=== PATIENT | female | born 1965 | race Caucasian/White ===

== ENCOUNTER 2018-11-05 16:10 | Emergency (ER) | payer MEDICAID ==
[2018-11-05] MEDS ORDERED: Sodium Chloride 0.9% 1,000 ML IV ONE (16:31)
--- NOTE | 2018-11-05 16:47 | ED Physician Chart ---
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 Pain, A/n/V/ D/C, fever, chills, or urinary s/s; pt's last tetanus shot: < 5 years; UTD; pt denies drug abuse Allergies:: Allergies Allergy/AdvReac Type Severity Reaction Status Date / Time No Known Allergies Allergy Verified 11/05/18 16:21 Vitals:: Vital Signs - 8 hr 11/05/18 16:21 Temp 98.8 F HR 108 RR 16 BP 115/77 O2 Sat % 97 Historian:: Patient, EMS Review:: Nurse's Note Reviewed, Old Chart Reviewed, EMS run form Reviewed ED Review of Systems - Review of Systems General/Constitutional: No fever, No chills, No weight loss, No weakness, No diaphoresis, No edema, No loss of appetite Skin: No skin lesions, No rash, No bruising Head: No headache, No light-headedness Eyes: No loss of vision, No pain, No diplopia ENT: No earache, No nasal drainage, No sore throat, No tinnitus Neck: No neck pain, No swelling, No thyromegaly, No stiffness, No mass noted Cardio Vascular: No chest pain, No palpitations, No PND, No orthopnea, No edema Pulmonary: No SOB, No cough, No sputum, No wheezing GI: No nausea, No vomiting, No diarrhea, No pain, No melena, No hematochezia, No constipation, No hematemesis G/U: No dysuria, No frequency, No hematuria, No nacturia Wool Handler: No vaginal discharge, No abnormal vaginal bleed, No contraction Musculoskeletal: No bone or joint pain, No back pain, No muscle pain Endocrine: No polyuria, No polydipsia Psychiatric: No prior psych history, No depression, No anxiety, No suicidal ideation, No homicidal ideation, No auditory hallucination, No visual hallucination Hematopoietic: No bruising, No lymphadenopathy Allergic/Immuno: No urticaria, No angioedema Neurological: No syncope, No focal symptoms, No weakness, No paresthesia, No headache, No seizure, No dizziness, No confusion, No vertigo ED Past Medical History - Past Medical History Obtainable: Yes Past Medical History: No significant medical hx Family History: None Social History: Non Smoker, Alcohol, No Drug Use, Surgical History: other (Breast Implant) Psychiatricy History: None Medication: Reviewed Family Medical History - Family Member Father Living Status: Still Living Hx Family Diabetes: Yes ED Physical Exam - Physical Examination General/Constitutional: Awake, Well-developed, well-nourished, Alert, No distress, GCS 15, Non-toxic appearing, Ambulatory Head: Atraumatic Eyes: Lids, conjuctiva normal, PERRL, EOMI Skin: Nl inspection, No rash, No skin lesions, No ecchymosis, Well hydrated, No lymphadenopathy ENMT: External ears, nose nl, TM canals nl, Nasal exam nl, Lips, teeth, gums nl , Oropharynx nl, Tonsils nl Neck: Nontender, Full ROM w/o pain, No JVD, No nuchal rigidity, No bruit, No mass, No stridor Respiratory: Nl effort/Exclusion, Clear to Auscultation, No Wheeze/Rhonchi/Rales Cardio Vascular: RRR, No murmur, gallop, rubs, NL S1 S2, Carotid/Femoral/Distal pulses equal bilaterally GI: No tenderness/rebounding/guarding, No organomegaly, No hernia, Normal BS's, Nondistended, No mass/bruits, No McBurney tenderness : No CVA tenderness Extremities: No tenderness or effusion, Full ROM, normal strength in all extremities, No edema, Normal digits & nails Neuro/Psych: Alert/oriented, DTR's symmetric, Normal sensory exam, Normal motor strength, Judgement/insight normal, Mood normal, Normal gait, No focal deficits Misc: Normal back, No paraspinal tenderness ED Labs/Radiology/EKG Results - Lab Results Comments:: Reviewed - EKG Interpretations EKG Time:: 16:43 Rate & Rhythm: 118; ST Comments:: LAE; non-specific st-t changes ED Septic Shock - . Is Septic Shock (SBP<90, OR Lactate>4 mmol\L) present?: No - <6hrs of presentation: Vital Signs: Vital Signs - 8 hr 11/05/18 16:21 Temp 98.8 F HR 108 RR 16 BP 115/77 O2 Sat % 97 ED Reassessment (Disposition) - Reassessment Reassessment Condition:: Improved - Diagnosis Diagnosis:: Altered Mental Status; Altered Level of Consciousness; Elevated D-Dimer; Hypokalemia; Elevated LFTs; Hypocalcemia; HLD; Hematuria; UTI; Alcohol Abuse; Alcohol Intoxication; Tachycardia; Dehydration
[2018-11-05 16:58] LABS: % BASOPHILS 2.7 % (0.0-2.0); % EOSINOPHILS 0.7 % (0.0-5.0); % LYMPHOCYTES 17.4 % (20.0-50.0); % NEUTROPHILS 76.2 % (40.0-80.0); BASOPHILE ABSOLUTE 0.2 Th/cumm (0-0.2); EOSINOPHILE ABSOLUTE 0.1 Th/cmm (0.1-0.4); HEMATOCRIT 37.5 % (41.0-60); HEMOGLOBIN 12.2 gm/dL (12-16); LYMPHOCYTE ABSOLUTE 1.3 Th/cmm (1.5-3.0); MEAN CELL VOLUME 92.4 fl (81-100); MEAN CORPUSCULAR HEMOGLOBIN 30.2 pg (27.0-31.0); MEAN CORPUSCULAR HGB CONC 32.7 pg (28.0-36.0); MONOCYTE ABSOLUTE 0.2 Th/cmm (0.3-1.0); NEUTROPHILE ABSOLUTE 5.9 Th/cmm (1.8-8.0); PLATELET COUNT 231 Th/cmm (150-400); RED BLOOD COUNT 4.05 Mil/cmm (3.80-5.10); RED CELL DISTRIBUTION WIDTH 16.9 % (11.5-20.0); WHITE BLOOD COUNT 7.7 Th/cmm (4.8-10.8)
[2018-11-05 17:04] LABS: URINE SOURCE RANDOM
[2018-11-05 17:07] LABS: URINE BILIRUBIN NEGATIVE (NEGATIVE); URINE BLOOD SMALL (NEGATIVE); URINE GLUCOSE (UA) NEGATIVE (NEGATIVE); URINE KETONE NEGATIVE (NEGATIVE); URINE LEUKOCYTE ESTERASE NEGATIVE (NEGATIVE); URINE MICROSCOPIC INDICATED? YES; URINE NITRATE NEGATIVE (NEGATIVE); URINE PROTEIN TRACE mg/dL (NEGATIVE); URINE UROBILINOGEN 0.2 E.U./dL (0.2 - 1.0)
[2018-11-05 17:10] LABS: INR 1.01 (0.5-1.4)
[2018-11-05 17:15] LABS: ALB/GLOB RATIO 1.3 (1.0-1.8); ALBUMIN 3.8 gm/dL (3.7-5.3); ALKALINE PHOSPHATASE 137 U/L (34-104); AMYLASE SERUM 98 U/L (29-103); ANION GAP 17.2 (7.0-16.0); BILIRUBIN,TOTAL 0.4 mg/dL (0.3-1.0); BUN - UREA NITROGEN 11 mg/dL (7-25); CALCIUM SERUM 8.2 mg/dL (8.6-10.3); CARBON DIOXIDE 26.2 mEq/L (21.0-31.0); CHLORIDE 101 mEq/L (98-107); CHOLESTEROL 222 mg/dL (<200); CREATININE - SERUM 0.7 mg/dL (0.6-1.2); CREATININE KINASE 237 U/L (30-223); GFR AFRICAN-AMERICAN > 60.0 ml/min (>90); GFR NON AFRICAN-AMERICAN > 60.0 ml/min; GLUCOSE 125 mg/dL (70-105); HDL -HIGH DENSITY LIPOPROTEIN 106 mg/dL (23-92); LIPASE 28 U/L (11-82); POTASSIUM SERUM 3.4 mEq/L (3.5-5.1); SGOT 175 U/L (13-39); SGPT/ALT 71 U/L (7-52); SODIUM SERUM 141 mEq/L (136-145); TOTAL PROTEIN,SERUM 6.7 gm/dL (6.0-8.3); TRIGLYCERIDES 84 mg/dL (<150)
[2018-11-05 17:29] LABS: URINE CLARITY CLEAR (CLEAR); URINE COLOR YELLOW
[2018-11-05 17:34] LABS: AMPHETAMINE URINE NEGATIVE (NEGATIVE); BARBITURATES URINE NEGATIVE (NEGATIVE); BENZODIAZEPINES QUAL URINE NEGATIVE (NEGATIVE); CANNABINOID THC NEGATIVE (NEGATIVE); COCAINE METABOLITE QUAL URINE NEGATIVE (NEGATIVE); METHADONE URINE NEGATIVE (NEGATIVE); METHAMPHETAMINES QUAL URINE NEGATIVE (NEGATIVE); OPIATES (MORPHINE) QUAL. URINE NEGATIVE (NEGATIVE); PHENCYCLIDINE (PCP) URINE NEGATIVE (NEGATIVE); TRICYCLICS (TCA) QUAL. URINE NEGATIVE (NEGATIVE)
[2018-11-05 17:41] LABS: URINE BACTERIA 1+ /hpf (NONE SEEN); URINE EPITHELIAL CELLS FEW /lpf (FEW); URINE WBC 0-2 /hpf (0-5)
[2018-11-05] MEDS ORDERED: Potassium Chloride 20 mEq ER Tab PO ONE ×2 (18:03→18:16)
[2018-11-05] MEDS ORDERED: Multivitamin Inj 10 ML, Thiamine HCL 100 MG in Sodium Chloride 0.9% 1,000 ML IV ONE (18:04)
[2018-11-05] MEDS ORDERED: Mag Sulfate 2gm/50mL Premix 2 GM/50 ML BAG IV ONE ×2 (18:04→18:13)
[2018-11-05] MEDS ORDERED: Folic Acid 1 MG/0.2 ML SYR IVP ONE (18:04)
[2018-11-05] MEDS ORDERED: cefTRIAXone 1 GM in Sodium Chloride 0.9% 50 ML IV ONE (18:05)
[2018-11-05] MEDS ORDERED: Thiamine 100 mg/mL 2mL Vial ONE (18:28)
[2018-11-05] MEDS ORDERED: Multivitamin Inj 10 mL Vial IV ONE (18:29)
[2018-11-05] MEDS ORDERED: IOHEXOL 350mgI/mL 150mL IV ONE (19:02)
[2018-11-06] MEDS ORDERED: Metoclopramide 5 mg/mL 2mL Vial IVP STA (00:41)
[2018-11-06] MEDS ORDERED: Metoclopramide 5 mg/mL 2mL Vial ONE (00:41)
--- NOTE | 2018-11-06 08:54 | Diagnostic Imaging Report ---
Bilateral lower extremity DVT study HISTORY: elevated d-dimer COMPARISON: None Technique: Longitudinal and transverse sonographic images of the bilateral lower extremity veins were obtained with doppler analysis. FINDINGS: There is normal compressibility, augmentation and phasicity of the bilateral common femoral, superficial femoral, popliteal, and posterior tibial veins. No thrombus is visualized. IMPRESSION: No evidence of thrombus within the bilateral lower extremity veins.
--- NOTE | 2018-11-06 09:02 | Diagnostic Imaging Report ---
CT Chest PE study Indication: Elevated d-dimer Comparison: None, Technique: Axial images were obtained from the base of the neck to the upper abdomen, following administration of IV contrast, PE protocol. Multiplanar reconstructions were made. total DLP: [id number], [id number] FINDINGS: Bilateral breast implants are noted. There may be left-sided intracapsular rupture. Bilateral diffuse breast skin thickening is also noted. No evidence of mediastinal lymphadenopathy. There is what appears to be thickening of the esophageal wall with a moderate size hiatal hernia noted. Narrowing of the distal esophageal lumen is noted. Heart size is at the upper limits of normal. No evidence of an aortic aneurysm. No pericardial effusion. No evidence of a pulmonary embolus. The lung rubio demonstrate hypoventilatory atelectatic changes. Few air cysts are seen throughout both lungs the largest within the left upper lobe measuring 8 mm. The upper abdomen demonstrates fatty liver. Degenerative changes of the spine are noted. There is scoliosis. IMPRESSION: No evidence of pulmonary embolus. No focal consolidation or pleural effusions. A few air cysts are seen throughout both lungs the largest within the left upper lobe measuring 8 mm. Ill-defined esophageal wall thickening greatest along distal aspect with what appears to be narrowing of the distal esophageal lumen. There is also moderate sized hiatal hernia. Inflammatory or neoplastic process cannot be excluded. Recommend clinical correlation and possible endoscopy. Bilateral breast implants. Left-sided intracapsular rupture cannot be ruled out. Clinical correlation and follow-up recommended Bilateral breast skin thickening which be correlated clinically. Fatty liver.
== END 2018-11-06 09:05 | disposition home or self-care (01) ==
LOC: ER 16:10
DX: F10.129 Alcohol abuse with intoxication, unspecified (principal); E86.0 Dehydration; E87.6 Hypokalemia; E83.51 Hypocalcemia; E78.5 Hyperlipidemia, unspecified; N39.0 Urinary tract infection, site not specified; R79.89 Other specified abnormal findings of blood chemistry; R41.82 Altered mental status, unspecified; R00.0 Tachycardia, unspecified; Y90.8 Blood alcohol level of 240 mg/100 ml or more
CPT/HCPCS: 99284; 96365; 96361; 96366; 96368; 96375 ×2; 94760; 93005; 93970; 71275; 84484; 83880; 36415; 85379; 80307; 85025; 85610; 87086; 81001; 80320; 82150; 82550; 82553; 84703; 83690; 83735; 80053; 80061; 96376; J3475; J2060 ×2; J2405; J0696; J3411; J2765; J7030; X6226; X6598